=== PATIENT | female | born 1960 | race African-American/Black ===

== ENCOUNTER 2016-10-31 07:36 | Emergency (ER) | payer MEDICAID ==
[~2016-10-31] VITALS: Ht 165.1 cm; Wt 106.5 kg
[~2016-10-31 07:36] MED LIST: ALBU6.7H INH; ASPI-515 PO; BECL8.7A7 INH; CARV25TA12 PO; CROM10DR2 EACHEYE; DIAZ10TA4 PO; GABA300C PO; GLIP5TAB10 PO; HYDR-3241 PO; INSU100V8 SQ; METF500T4 PO; QUET100T PO; SERT50TA PO; SERT50TA5 PO; SIMV20TA PO; SPIR25TA3 PO
[2016-10-31 07:37] VITALS: BP_DIAS 84
[2016-10-31] MEDS ORDERED: BACITRACIN ZINC OINT 500U/GM, 0.9 GM ONE (08:39)
[2016-10-31 09:14] VITALS: BP_SYST 144
== END 2016-10-31 09:17 | disposition home or self-care (01) ==
LOC: ED 09:03
DX: J45.30 Mild persistent asthma, uncomplicated (principal); J20.8 Acute bronchitis due to other specified organisms; L25.3 Unspecified contact dermatitis due to other chemical products; E11.9 Type 2 diabetes mellitus without complications; M06.9 Rheumatoid arthritis, unspecified; F17.200 Nicotine dependence, unspecified, uncomplicated
CPT/HCPCS: 71020; 99284